=== PATIENT | female | born 1940 | race Caucasian/White ===

== ENCOUNTER 2020-11-24 09:06 | Outpatient (CLI) | payer MEDICARE, SELFPAY ==
--- NOTE | ~2020-11-24 | XR_ITS ---
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 TECHNIQUE: Frontal and lateral views of the chest were obtained. COMPARISON: None. FINDINGS: A calcified right lung nodules consistent with old granulomatous disease. There is mild sca rring at the lung apices. No pleural effusion or pneumothorax. The heart size is normal. IMPRESSION: 1. Mild scarring at the lung apices. Reviewed, dictated and finalized at location A. [employer]
[2020-11-24 09:45] LABS: Basophils Absolute Auto 0.1 K/mm3 (0.0-0.1); Basophils Percent Auto 0.6 % (0.2-1.2); Eosinophils Absolute Auto 0.1 K/mm3 (0-0.3); Eosinophils Percent Auto 0.6 % (0-4.4); Hematocrit 43.1 % (37.0-47.0); Hemoglobin 14.6 g/dL (12.0-15.0); Immature Granulocyte Absolute 0.02 K/mm3 (0.00-0.031); Immature Granulocyte Percent A 0.2 % (0-0.5); Lymphocytes Absolute Auto 0.74 K/mm3 (0.9-3.2); Lymphocytes Percent Auto 8.2 % (18.3-44.2); Mean Corpuscular HGB Conc 33.9 g/dl (32-36); Mean Corpuscular Hemoglobin 28.6 pg (26-34); Mean Corpuscular Volume 84.3 fl (80-100); Mean Platelet Volume 10.2 fl (7.4-10.4); Monocytes Absolute Auto 0.5 K/mm3 (0.1-0.6); Neutrophils Absolute Auto 7.7 K/mm3 (1.3-6.7); Neutrophils Percent Auto 84.4 % (45.5-73.1); Platelet Count Result 226 k/mm3 (150-375); Red Blood Count 5.11 M/mm3 (4.2-5.4); Red Cell Distribution Width 13.1 % (11.5-14.5); White Blood Count 9.1 K/mm3 (4.5-10.0)
[2020-11-24 12:24] LABS: Potassium 3.5 mmol/L (3.4-5.0)
[2020-11-24 12:30] LABS: Complement C3 134 mg/dL (88-165); Rheumatoid Factor < 8.6 IU/ML (<12)
[2020-11-24 12:35] LABS: Erythrocyte Sedimentation Rate 13 mm/hr (0-20)
[2020-11-24 12:41] LABS: Creatinine Urine 70.7 mg/dL; Total Protein Urine Random 8 mg/dL; Ur Ttl Prot Creatinine Ratio 0.11 mg/mg (0-0.20)
[2020-11-24 12:48] LABS: Alanine Aminotransferase 20 U/L (4-35); Albumin Level 4.9 g/dL (3.5-5.1); Alkaline Phosphatase 138 U/L (38-126); Anion Gap 8 mmol/L (8-16); Aspartate Amino Transferase 34 U/L (14-36); Bilirubin,Total 0.6 mg/dL (0.2-1.3); Blood Urea Nitrogen 18 mg/dL (7-17); CRP < 0.5 mg/dL (<1.0); Calcium 10.7 mg/dL (8.4-10.2); Carbon Dioxide 30 mmol/L (22-30); Chloride 99 mmol/L (98-107); Estimated Glomerular Filt Rate > 60; Glucose 134 mg/dL (65-105); Sodium 137 mmol/L (137-145); Uric Acid 3.8 mg/dL (2.5-7.5)
[2020-11-28 11:25] LABS: SM Antibody <1.0; SM/RNP Antibody <1.0; SS-A <1.0; SS-B <1.0
[2020-11-29 10:58] LABS: Anti Cyclic Citrullinated Pept <16 Units (<20)
== END 2020-11-24 09:07 | disposition home or self-care (01) ==
PROVIDERS: Visit Provider Internal Medicine
DX: M10.9 Gout, unspecified (principal); M19.90 Unspecified osteoarthritis, unspecified site; M31.30 Wegener's granulomatosis without renal involvement; R91.8 Other nonspecific abnormal finding of lung field
CPT/HCPCS: 36415; 71046; 80053; 82570; 84156; 84550; 85025; 85652; 86038; 86140; 86160; 86200; 86225; 86235; 86430

== ENCOUNTER 2021-05-24 09:42 | Outpatient (CLI) | payer MEDICARE, SELFPAY ==
--- NOTE | ~2021-05-24 | CT_ITS ---
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 Axial, coronal and sagittal images of the chest were reviewed. Coronal maximum intensity pixel images of chest reviewed. The dose-length product ( DLP) for this examination was 124.86 mGy-cm. The exposure was tailored according to patient size (au to mA exposure control), and iterative reconstruction (ASIR) was used as additional dose reduction [place]. There is no prior study for comparison. FINDINGS: There are biapical opacities with calcification, most likely scarring. Right upper lobe ca lcifications, granulomas. There are no pleural or pericardial effusions. Tracheobronchial tree is patent. There is no mediastinal, hilar or axillary lymphadenopathy. There is no pneumothorax. H eart normal in size. There may be right coronary artery stent. Moderate left anterior descending co ronary artery calcifications. Correlate with prior cardiac history. There is 1.7 cm right adrenal ad enoma. There is mild thoracic spondylosis without osteoblastic or osteolytic lesions identified. M ild compression fracture superior endplate L1. IMPRESSION: 1. Vague opacities probably scarring but recommend 6 month follow-up CT. 2. Dense coronary arteries, probably combination of stent and arteriosclerosis. 3. Right adrenal adenoma. Reviewed, dictated and finalized at location B. IMPRESSION: 1. Vague opacities probably scarring but recommend 6 month follow-up CT. 2. Dense coronary arteries, probably combination of stent and arteriosclerosis . 3. Right adrenal adenoma.
== END 2021-05-24 09:43 | disposition home or self-care (01) ==
PROVIDERS: PCP Internal Medicine; Visit Provider Internal Medicine
DX: M31.30 Wegener's granulomatosis without renal involvement (principal); D35.01 Benign neoplasm of right adrenal gland
CPT/HCPCS: 71250

== ENCOUNTER 2021-11-29 08:35 | Outpatient (CLI) | payer MEDICARE, SELFPAY ==
--- NOTE | ~2021-11-29 | CT_ITS ---
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 TECHNIQUE: Spiral CT of the chest without contrast. Axial, coronal and sagittal images of the chest were reviewed. Coronal maximum intensity pixel images of chest reviewed. The dose-length product ( DLP) for this examination was 72.66 mGy-cm. The exposure was tailored according to patient size (aut o mA exposure control), and iterative reconstruction (ASIR) was used as additional dose reduction [place]. Comparison is made to prior examination from 05/24/2021. FINDINGS: Biapical opacities are unchanged, consistent with scarring. Mild emphysema. There are no p leural or pericardial effusions. Tracheobronchial tree is patent. There is no mediastinal, hilar or axillary lymphadenopathy. There is no pneumothorax. Heart normal in size. Right adrenal lelia jamel unchanged. There is small sliding gastroesophageal hiatal hernia. Dense coronary artery calcifica tions and/or stents. There is mild to moderate thoracic spondylosis without osteoblastic or osteolyti c lesions identified. Mild L1 compression fracture. IMPRESSION: 1. Stable apical scarring and mild emphysema. 2. Dense coronary artery calcifications and/or stents. 3. Small hiatal hernia. 4. Right adrenal adenoma. Reviewed, dictated and finalized at location A. [employer]
--- NOTE | 2021-11-29 12:53 | WPDPFTINT ---
PFT Procedure Performed PFT Procedure Performed Spirometry with Pre/Post Bronchodilator Diffusing Cap (DLCO) PFT Interpretation Spirometry showed normal expiratory flow rates and a normal FEV1 to FVC ratio 72%. Following administration of a bronchodilator there was no significant change in the expiratory flow rates. Lung diffusion capacity within the normal range. The flow volume loop is unremarkable. Impression: Spirometry lung and diffusion capacity within normal range.
--- NOTE | 2021-11-29 12:57 | WPDSIXMINUTE ---
Six Minute Walk Procedure Procedure Performed Pulmonary Stress Test (6 min walk) Six Minute Walk This 6 minute walk test was carried out with the patient breathing ambient air. The pre walk oxyhemoglobin saturation was 98%. The patient walked 426 m with no stops recorded. During the walk the oxyhemoglobin saturation remained over 93%. The perceived dyspnea was 1 on the Kaleb scale at baseline and increased to 2 at the end of the walk. impression: No evidence of oxyhemoglobin desaturation on this testing.
== END 2021-11-29 08:36 | disposition home or self-care (01) ==
LOC: ANHPFT 08:41
PROVIDERS: PCP Internal Medicine; Visit Provider Internal Medicine Pulmonary Disease
DX: M31.30 Wegener's granulomatosis without renal involvement (principal); J40 Bronchitis, not specified as acute or chronic; R06.02 Shortness of breath; Z72.0 Tobacco use; J43.9 Emphysema, unspecified; R91.8 Other nonspecific abnormal finding of lung field; K44.9 Diaphragmatic hernia without obstruction or gangrene; D35.01 Benign neoplasm of right adrenal gland
CPT/HCPCS: 71250; 94060; 94618; 94729